=== PATIENT | male | born 1995 | race Caucasian/White ===

== ENCOUNTER 2023-12-25 19:31 | Emergency (ER) | payer OTHER, SELFPAY ==
--- NOTE | 2023-12-25 19:39 | ED.EYEPROB ---
HPI - Eye Problem General Chief complaint: Eye Problems Stated complaint: Right Eye Irritation Time Seen by Provider: 12/25/23 19:57 Source: patient and RN notes reviewed Mode of arrival: ambulatory Limitations: no limitations History of Present Illness HPI Narrative: 28-year-old male presents with concern for getting a wood chip in his eye earlier today. Reports he rinsed his eye out well. Denies vision changes. Reports light sensitivity chief complaint: eye pain Related Data Allergies Allergy/AdvReac Type Severity Reaction Status Date / Time NKDA Allergy Unknown Other Uncoded 12/25/23 19:36 Review of Systems Review of Systems: CONSTITUTIONAL: Denies malaise, chills, sweats, or fever. EYES: Denies visual changes. Reports right eye redness, pain ENT: Denies rhinorrhea, congestion, sinus pain, otalgia or sore throat. SKIN: Denies rash or itching. NEUROLOGIC: Denies numbness, weakness, or headache. PSYCHIATRIC: Denies anxiety or depression. All systems reviewed & are unremarkable except as noted in HPI and below PMFSH Comments At time of signature, agree with nursing past medical, surgical, social and family history. There is no relevant family history pertinent to the presenting complaint Exam Narrative: GENERAL: Well-appearing, well-nourished, and in no acute distress. HEAD: Normocephalic, atraumatic. EYES: PERRLA, sclera clear, and EOMI. No nystagmus. Right sclera injected with no foreign body visible, corneal abrasion noted upon Wood's lamp exam, see note. Upper and lower eyelid unremarkable, no periorbital edema noted ENT: Nares clear, turbinates pink, no rhinorrhea or epistaxis. Mucous membranes moist. TM pearly cabrera with sharp light reflex bilaterally; no tragal tenderness. NECK: Supple. CHEST: No respiratory distress. Speaks in full sentences. HEART: Regular rate and rhythm. SKIN: Warm, dry, no visible rash. NEURO: Alert and oriented x3. PSYCH: Normal mood and affect Course Course Emergency Course: Patient is aware of diagnosis, understands and agrees to treatment plan. Anticipatory guidance given. Patient agrees to follow-up as directed and is aware of reasons to seek care at the emergency department. Portions of this record may have been created with voice recognition software Level of Care: Express Care Visit Vital Signs Vital signs: Reviewed. Procedures Other Procedure Procedure 1: Other Procedure: Tetracaine 1 gtt instilled in right eye, fluorescein stain applied. Corneal abrasion noted upon still lamp exam above the pupil. Eye washed with NS 100 ml. No foreign bodies or Michelle sign noted. MDM - Eye Problem MDM Narrative Medical decision making narrative: Consideration of the following conditions may be warranted for the presenting problem, they are not final diagnoses: Bacterial conjunctivitis, allergic conjunctivitis, viral conjunctivitis, foreign body, blepharitis, chalazion, hordeolum, corneal abrasion, preseptal cellulitis, orbital cellulitis. No evidence of proptosis, ophthalmoplegia, vision loss, pain with eye movement. Exam findings show no acute concerns or changes; patient is non-toxic appearing and is in no distress. Patient is appropriate for outpatient treatment and follow-up. Critical Care Time Critical Care Time Critical Care Time: No Discharge Plan Discharge Clinical Impression: Corneal abrasion Patient Disposition: Home, Self-Care Condition: Stable Instructions: How to Use Eye Drops (ED) Additional Instructions: Corneal abrasions will heal in 1-2 days. Keep your eye shut and wear sunglasses or stay in low light to avoid light sensitivity. Do not touch or rub your eye or use a fabric patch You may take Tylenol or ibuprofen for pain Follow-up with PCP or brassiere cup mold cutter if condition is not improving in 2-3days. Prescriptions: New polymyxin B sulf-trimethoprim 10,000 unit- 1 mg/mL drops 1 drp RIGHT EYE Q3H 7 Days Qty: 10
[2023-12-25 19:45] VITALS: BP 130/69; PULSE 101; RESP 18; TEMP 37; O2SAT 99
[2023-12-25] MEDS: FLUORESCEIN SOD 1 MG/STRIP RIGHT EYE (19:56)
[2023-12-25] MEDS: TETRACAINE HCL 0.5% OPHTH SOLN 4 ML BTL RIGHT EYE (19:56)
[2023-12-25] MEDS: DACRIOSE EYE IRRIGATION 118 ML BOTTLE RIGHT EYE (19:57)
== END 2023-12-25 20:15 | disposition home or self-care (01) ==
PROVIDERS: Emergency Provider Nurse Practitioner
DX: S05.01XA Injury of conjunctiva and corneal abrasion without foreign body, right eye, initial encounter (principal); X58.XXXA Exposure to other specified factors, initial encounter
CPT/HCPCS: 99213; A9270; G0463

== ENCOUNTER 2024-09-09 13:27 | Emergency (ER) | payer OTHER, SELFPAY ==
[2024-09-09 13:52] VITALS: BP 128/71; PULSE 80; RESP 16; TEMP 36.6; O2SAT 100
--- NOTE | 2024-09-09 15:51 | ED_ITS ---
HPI - Dental/Oral General Chief complaint: Dental/Oral Stated complaint: R sided jaw swelling Related Data Allergies Allergy/AdvReac Type Severity Reaction Status Date / Time NKDA Allergy Unknown Other Uncoded 12/25/23 19:36 Course Vital Signs Vital signs: Vital Signs Temperature 97.9 F 09/09/24 13:52 Pulse Rate 80 09/09/24 13:52 Respiratory Rate 16 09/09/24 13:52 Blood Pressure 128/71 09/09/24 13:52 Pulse Oximetry 100 09/09/24 13:52 Temperature 97.9 F 09/09/24 13:52 Pulse Rate 80 09/09/24 13:52 Respiratory Rate 16 09/09/24 13:52 Blood Pressure 128/71 09/09/24 13:52 Pulse Oximetry 100 09/09/24 13:52 Discharge Plan Discharge Patient Language: Croatian Prescriptions: No Action polymyxin B sulf-trimethoprim 10,000 unit- 1 mg/mL drops 1 drp RIGHT EYE Q3H 7 Days Qty: 10 0RF Rx Instructions: while awake; do not exceed 6 doses in 24 hours Follow-up/Referrals: PHYSICIAN NOT ON STAFF,NONSTAFF [Primary Care Provider] - Stand Alone Forms: Work/School Release IP
--- NOTE | 2024-09-09 15:53 | PC.NURSE ---
Pt. called x1 in [facility] to receive MSE with no reply.
--- NOTE | 2024-09-09 16:21 | PC.NURSE ---
Pt. called x2 in [facility] with no reply. Pt. will be removed from tracker.
== END 2024-09-09 16:25 | disposition left against medical advice (07) ==
LOC: ANHED 16:23
DX: R22.0 Localized swelling, mass and lump, head (principal)
CPT/HCPCS: 99199

== ENCOUNTER 2024-11-30 11:17 | Emergency (ER) | payer OTHER, SELFPAY ==
[2024-11-30 11:19] VITALS: BP 132/58; PULSE 61; RESP 16; TEMP 36.7; O2SAT 98
--- NOTE | 2024-11-30 12:17 | ED_ITS ---
HPI - Wound/Laceration General Chief Complaint: Wound/Laceration Stated Complaint: L wrist lac Time Seen by Provider: 11/30/24 12:00 History of Present Illness HPI narrative: Pt presents with a laceration to left wrist. Pt was cutting siding with knife and cut wrist. tetanus needed. Pt denies other injury. Related Data Allergies Allergy/AdvReac Type Severity Reaction Status Date / Time No Known Allergies Allergy Verified 11/30/24 11:34 Review of Systems Review of Systems: All systems reviewed & are unremarkable except as noted in HPI and below Exam Const: General: healthy appearing and no acute distress Nutritional Appearance: well nourished Orientation/consciousness: patient oriented x3 Limitations: no limitations Resp: Effort & Inspection: normal respiratory effort Auscultation: clear to auscultation bilaterally Cardio: Rate: regular rate Rhythm: regular rhythm GI: GI Palp: Yes Soft to palpation and No Tenderness to palpation present (GI) Auscultation: normal bowel sounds Skin: General skin exam: normal color Rashes: no rashes Wounds: wounds noted (1 cm laceration left wrist) Neuro: General: patient oriented x3, moves all extremities and no focal motor deficits Speech: normal speech Extrem: General: normal to inspection and no clubbing, cyanosis or edema Psych: Mental Status: mental status grossly normal Affect: normal affect Attitude: cooperative Course Vital Signs Vital signs: Vital Signs Temperature 98.0 F 11/30/24 11:19 Pulse Rate 61 11/30/24 11:19 Respiratory Rate 16 11/30/24 11:19 Blood Pressure 132/58 L 11/30/24 11:19 Pulse Oximetry 98 11/30/24 11:19 Oxygen Delivery Room Air 11/30/24 11:19 Temperature 98.0 F 11/30/24 11:19 Pulse Rate 61 11/30/24 11:19 Respiratory Rate 16 11/30/24 11:19 Blood Pressure 132/58 L 11/30/24 11:19 Pulse Oximetry 98 11/30/24 11:19 Oxygen Delivery Room Air 11/30/24 11:19 Procedures Laceration Laceration 1: Site: upper extremity Side (If applicable): left Size (cm): 1 Description: linear Depth: simple, single layer ====== Skin Level ====== Skin layer closed with: dermabond ====== Subcutaneous Layer ====== ====== Muscle Layer ====== ====== Tendon Layer ====== MDM - Wound/Laceration MDM Narrative Medical decision making narrative: Pt has small linear lac to left wrist closed with dermabond tetanus given. Discharge Plan Discharge Clinical Impression: Laceration Patient Disposition: Home Condition: Improved Instructions: Antibiotic Form, Laceration (ED) Patient Language: Icelandic Prescriptions: No Action polymyxin B sulf-trimethoprim 10,000 unit- 1 mg/mL drops 1 drp RIGHT EYE Q3H 7 Days Qty: 10 0RF Rx Instructions: while awake; do not exceed 6 doses in 24 hours Follow-up/Referrals: PHYSICIAN NOT ON STAFF,NONSTAFF [Non-Staff] -
--- OUTSIDE RECORDS SUMMARY | 2024-11-30 12:31 | XMS_ITS | Clinical Summary ---
Author Organization [facility] Address [facility] [place] [address] Care Team Providers Care Cosmetic Account Coordinator Name Role Phone Jarred Sammendoza FRANK Primary Care Provider [phone] Allergies No known active allergies Medications albuterol sulfate HFA 108 (90 Base) MCG/ACT inhaler Inhale 2 puffs into the lungs every 6 (six) hours as needed for Wheezing. 18 g 3 Active ondansetron (ZOFRAN-ODT) 4 MG disintegrating tablet Take 1 tablet (4 mg total) by mouth every 8 (eight) hours as needed for Nausea. 20 tablet 3 Active oxyCODONE-acetamino phen (PERCOCET) 5-325 MG tabletIndications:A cute Pain < 7 Day Supply Take 1 tablet by mouth every 6 (six) hours as needed for Pain. Indications : Acute Pain < 7 Day Supply 10 tablet 5 Active Active Problems No known active problems Encounters Date Type Department Care Team Description 09/09/2024 4:27 PM PRESS CLEANER - 09/09/2024 7:52 PM PRESS CLEANER Emergency [facility] Emergency [place] [address] Florencia Woo, BULK SEALER Dental Swelling Discharge Disposition: Home or Self Care (Routine Discharge) 09/09/2024 Travel from Last 3 Months Immunizations Immunization Administration Dates Next Due Tdap (Adacel) 11/10/2021 Family History Medical History Relation Comments Diabetes Paternal Grandfather Diabetes Paternal Grandmother Relation Status Comments Paternal Grandfather Paternal Grandmother Social History Tobacco Use Types Packs/Day Years Used Date Smoking Tobacco: Every Day Cigarettes Smokeless Tobacco: Never Tobacco Cessation:Ready to Q uit: Not Asked; Counseling Given: Not Answered Alcohol Use Standard Drinks/Week Comments Yes 6.7 (1 standard drink = 0.6 oz p ure alcohol) AUDIT-C Answer Date Recorded Frequency of Alcohol Consumption Monthly or less 10/01/2018 Average Number of Drinks 7 to 9 019 Frequency of Binge Drinking Monthly 09/17 Sex and Gender Information Value Date Recorded Sex Assigned at Male 09/09/2024 4:27 PM PRESS CLEANER Legal Sex Male 7:13 PM CDT Gender Identity Not on file Sexual Orientation Not on file Last Filed Vital Signs Vital Sign Reading Time Taken Comments Blood Pressure 125/84 09/09/2024 6:00 PM PRESS CLEANER Pulse 90 09/09/2024 4:18 PM PRESS CLEANER Temperature 36.6 C (97.9 F) 09/09/2024 4:18 PM PRESS CLEANER Respiratory Rate 18 09/09/2024 4:18 PM PRESS CLEANER Oxygen Saturation 99% 09/09/2024 6:00 PM PRESS CLEANER Inhaled Oxygen Concentration - - Weight 63.5 kg (140 lb) 09/09/2024 4:18 PM PRESS CLEANER Height 180.3 cm (5' 11 ) 09/09/2024 4:18 PM PRESS CLEANER Body Mass Index 19.53 09/09/2024 4:18 PM PRESS CLEANER Plan of Treatment Health Maintenance Due Date Last Done Comments Annual Physical 1996 Hepatitis C 2011 Hepatitis B Vaccines (1 of 3 - 19+ 3-dose series) 2012 Pneumococcal Vaccine: Pediat rics (0 to 5 Years) and At-Risk Patients (6 to 49 Years) (1 of 2 - PCV) 2012 COVID-19 Vaccine (2023-2 5 season) 2024 DTaP, Tdap and Td Vaccines ( 2 - Td or Tdap) 11/11/2031 11/10/2021 HPV Vaccines Aged Out No longer eligi ble based on patient's age to complete this topic Meningococcal B Vaccine Aged Out No l onger eligible based on patient's age to complete this topic Meningococcal Vaccine Aged Out No xavi stefan eligible based on patient's age to complete this topic RSV Immunizations Under 20 Months Aged Out No longer eligible based on patient's age to complete this topic Procedures Procedure Name Priority Date/Time Associated Diagnosis Comments CT FACIAL BONES W CON STAT 09/09/2024 5:35 PM PRESS CLEANER CBC W/DIFF AUTOMATED STAT 09/09/2024 5:12 PM PRESS CLEANER from Last 3 Months Results * CT FACIAL BONES W CON (09/09/2024 5:35 PM PRESS CLEANER) Anatomical Region Laterality Modality Facial Computed Tomogra phy 09/09/2024 5:38 PM PRESS CLEANER Impressions 09/09/2024 5:44 PM PRESS CLEANER IMPRESSION: 1. Small periodontal abscess measuring 9 x 7 x 2 mm, associated with periodontal disease of the right mandibular first molar. 2. Extensive soft tissue inflammation involving the right side of the face and neck. Referred By: Interpreted By: Ralph Quinn MD, 09/09/2024 5:38 PM Narrative 09/09/2024 5:44 PM PRESS CLEANER [address] [address] EXAMINATION: CT FACIAL BONES W CON CLINICAL HISTORY: Swelling COMPARISON: None DATE/TIME: 09/09/2024 5:21 PM TECHNIQUE: Multiplanar CT images of the facial bones were obtained. IV contrast: uneventful intravenous administration of 80 mL Isovue 370. Oral contrast: None. A dose lowering technique was used for this procedure, which may include, but is not limited to, dose reduction technique, automated exposure control, the use of iterative reconstruction, and ALARA (As Low As Reasonably Achievable) / Image Gently techniques. FINDINGS: There is marked soft tissue edema/inflammation in the right side of the face centimeter on the jaw line, extending from the right cheek into the included right side of the neck. This would be consistent with acute inflammation/cellulitis. No soft tissue gas. There is a small periodontal fluid collection in the superficial aspect of the right mandibular body measuring 9 x 2 mm transverse dimension and 7 mm craniocaudal dimension. This is consistent with a periodontal abscess. This is associated with A lucency surrounding the right mandibular first molar, which is carious. : Defect in the superficial cortex of the mandibular alveolar ridge in this region underlying the abscess. There are also multiple other dental caries and areas. A lucency surrounding the left mandibular second molar as well. No acute fracture identified. No dislocation. Only minimal sinus mucosal thickening is noted. Procedure Note Ralph Quinn MD - 09/09/2024 [facility] [address] [place], [place] [address] EXAMINATION: CT FACIAL BONES W CON CLINICAL HISTORY: Swelling COMPARISON: None DATE/TIME: 09/09/2024 5:21 PM TECHNIQUE: Multiplanar CT images of the facial bones were obtained. IVcontrast: uneventful intravenous administration of 80 mL Isovue 370. Oralcontrast: None. A dose lowering technique was used for this procedure, which may include,but is not limited to, dose reduction technique, automated exposurecontrol, the use of iterative reconstruction, and ALARA (As Low AsReasonably Achievable) / Image Gently techniques. FINDINGS: There is marked soft tissue edema/inflammation in the right sideof the face centimeter on the jaw line, extending from the right cheekinto the included right side of the neck. This would be consistent withacute inflammation/cellulitis. No soft tissue gas. There is a smallperiodontal fluid collection in the superficial aspect of the rightmandibular body measuring 9 x 2 mm transverse dimension and 7 mmcraniocaudal dimension. This is consistent with a periodontal abscess.This is associated with A lucency surrounding the right mandibular first molar, which is carious.: Defect in the superficial cortex of the mandibular alveolar ridge inthis region underlying the abscess. There are also multiple other dentalcaries and areas. A lucency surrounding the left mandibular second molaras well. No acute fracture identified. No dislocation. Only minimalsinus mucosal thickening is noted. IMPRESSION: 1. Small periodontal abscess measuring 9 x 7 x 2 mm, associated withperiodontal disease of the right mandibular first molar. 2. Extensive soft tissue inflammation involving the right side of theface and neck. Referred By: Interpreted By: Ralph Quinn MD, 09/09/2024 5:38 PM Florencia Woo BULK SEALER CT Final Resul t * (ABNORMAL) CBC W/DIFF AUTOMATED (09/09/2024 5:12 PM PRESS CLEANER) Pathologist [facility] WBC 7.58 4.5 - 11.0 x10'3/uL 09/09/2024 5:31 PM PRESS CLEANER [facility] RBC 4.31(L) 4.70 - 6.10 x10'6/uL 09/09/2024 5:31 PM [facility] HGB 13.9(L) 14.0 - 18.0 G/DL 09/09/2024 5:31 PM [facility] HCT 41.2(L) 43.0 - 54.0 % 09/09/2024 5:31 PM [facility] MCV 95.6(H) 80.0 - 94.0 FL 09/09/2024 5:31 PM [facility] MCH 32.3(H) 27.0 - 31.0 PG 09/09/2024 5:31 PM [facility] MCHC 33.7 32.0 - 36.0 G/DL 09/09/2024 5:31 PM [facility] RDW 13.8 11.5 - 14.5 % 09/09/2024 5:31 PM [facility] PLT 253 130 - 400 x10'3/uL 09/09/2024 5:31 PM [facility] MPV 9.7 9.3 - 12.2 FL 09/09/2024 5:31 PM [facility] DIFFERENTIAL TYPE AUTOMATED DIFFERENTIAL 09/09/2024 5:31 PM PRESS CLEANER [facility] NEUTROPHILS % 56.0 % 09/09/2024 5:31 PM PRESS CLEANER [facility] LYMPHOCYTES % 24.4 % 09/09/2024 5:31 PM PRESS CLEANER [facility] MONOCYTES % 13.6 % 09/09/2024 5:31 PM PRESS CLEANER [facility] EOSINOPHILS 5.0 % 09/09/2024 5:31 PM PRESS CLEANER [facility] BASOPHILS 0.7 % 09/09/2024 5:31 PM PRESS CLEANER [facility] IMMATURE GRANS % 0.3 % 09/09/19 5:31 PM PRESS CLEANER [facility] ABS. NEUTROPHILS 4.25 1.80 - 7.70 x10'3/uL 09/09/2024 5:31 PM PRESS CLEANER [facility] ABS. LYMPHOCYTES 1.85 1.00 - 4.80 x10'3/uL 09/09/2024 5:31 PM PRESS CLEANER [facility] ABS. MONOCYTES 1.03(H) 0.30 - 0.82 x10'3/uL 09/09/2024 5:31 PM PRESS CLEANER [facility] ABS. EOSINOPHILS 0.38 0.04 - 0.54 x10'3/uL 09/09/2024 5:31 PM PRESS CLEANER [facility] ABS. BASOPHILS 0.05 0.01 - 0.08 x10'3/uL 09/09/2024 5:31 PM PRESS CLEANER [facility] ABS. IMMATURE GRANULOCYTES 0.02 0.00 - 0.49 x10'3/uL 09/09/2024 5:31 PM PRESS CLEANER [facility] 09/09/2024 5:12 PM PRESS CLEANER us Florencia [facility] Final Resul t [facility] [address] [place] [address], [place] [phone] from Last 3 Months Insurance T Care Teams Cosmetic Account Coordinator Relationship Specialty Start Date End Date Sam, ZAC Wright [address] [place] [address] PCP - General NURSE PRACTITIONER 03/30/24
--- OUTSIDE RECORDS SUMMARY | 2024-11-30 12:31 | XMS_ITS | Encounter Summary ---
Author Organization [facility] Address [address] [place] [id number] Care Team Providers Care Autism Tutor Name Role Phone Blil Pritchard MD Primary Care Provider [phone] Tyron Carl MD Primary Care Provider [phone] Adriana Sam Primary Care Provider [phone] Encounter Details Date Type Department Care Team (Late st Contact Info) Description 01/04/2018 Abstract [facility] Conversion Bill Pritchard MD [address] [address] Social History Tobacco Use Types Packs/Day Years Used Date Smoking Tobacco: Never Assessed Sex and Gender Information Value Date Recorded Sex Assigned at Male 09/09/2024 4:27 PM ZONING ADMINISTRATOR Legal Sex Male 7:13 PM CDT Gender Identity Not on file Sexual Orientation Not on file documented as of this encounter Miscellaneous Notes * Letter - Bill Pritchard MD - 01/04/2018 12:00 AM CDT 05 January 2018 Gadiel Keith III [facility] [place] [address] Dear Gadiel Keith III, Thank you for the trust you have placed in [facility] as your health care team. You are a valued patient at our office and we hope you are well. We are concerned about your health and noticed that you did not keep your last scheduled appointment on 01/04/2018. If your appointment has not been rescheduled, please call the office at to reschedule your appointment as soon as possible. As you are aware, we are dedicated to caring for the whole patient, not just treating an illness. When we schedule appointments, we set aside time and professional resources to meet the individual needs of our patients, including time for one-on-one consultation. When a patient does not come to an appointment or cancels the appointment without sufficient notice, our health care team is not able to take time needed to care for another patient. Cancelling within at least 24 hours of your appointment allows us to prepare our schedule for other patients who need timely care. Please be aware, per our organization's no-show policy, if at least 24 hours' notice is not given two times in one year, the practice will impose a $25 no- show fee. We understand there are occasions when a patient must miss an appointment due to unforeseen circumstances. In this event, please call our office and cancel your appointment as soon as you are able. This allows our staff to schedule another patient in need of care. We are committed to providing you the best care possible. We hope to hear from you soon. Sincerely, [facility] cc: Patient Medical Record NG ADMINISTRATOR documented in this encounter Plan of Treatment Not on file documented as of this encounter Visit Diagnoses Not on filedocumented in this encounter Additional Health Concerns Infection Onset Date Last Indicated Resolved Time COVID-19 Rule Out 10/15/2022 10/15/2022 10/15/2022 5:39 PM CDT documented as of this encounter Care Teams Autism Tutor Relationship Specialty Start Date End Date Bill Pritchard MD PCP - General FAMILY PRACTICE 10/01/18 07/05/19 Tyron Carl MD [address] [address] PCP - General FAMILY PRACTICE 07/06/19 03/29/24 Adriana Sam APNP [address] [place] [address] PCP - General NURSE PRACTITIONER 03/30/24 documented as of this encounter
== END 2024-11-30 12:36 | disposition home or self-care (01) ==
LOC: ANHED 12:30
PROVIDERS: Emergency Provider Emergency Medicine; PCP Physician Assistant
DX: S61.512A Laceration without foreign body of left wrist, initial encounter (principal); W26.0XXA Contact with knife, initial encounter
CPT/HCPCS: 12001; 99282